=== PATIENT | female | born 1985 | race Caucasian/White ===

== ENCOUNTER 2017-10-24 08:47 | Emergency (ER) | payer MEDICAID, OTHER ==
[~2017-10-24] VITALS: Ht 170.2 cm; Wt 79.4 kg
[2017-10-24] MEDS ORDERED: LIDOCAINE 2% 20 ML (XYLOCAINE) VIAL ONE (11:21)
--- NOTE | 2017-10-24 11:57 | ED Integumentary General ---
General Chief Complaint: Skin/Wound Problems Stated Complaint: SPOT ON INNER RIGHT THIGH//PT HAS HS Nursing Triage Note: Pt reports abcess to R inner thigh near groin. Pt reports abcess has tripled in size since yesterday. Source: patient Exam Limitations: no limitations History of Present Illness Date Seen by Provider: Oct 24, 2017 Time Seen by Provider: 11:51 Initial Comments The patient is a 32-year-old white female. She lives in [facility] and is here with a construction project. 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 Her last was 3 months ago. She reports that she began to have pain earlier this week and that the lump has tripled in size since yesterday and is very tender. Timing/Duration: getting worse Allergies and Home Medications Patient Home Medication List Home Medication List Reviewed: Yes Constitutional: see HPI EENTM: no symptoms reported Respiratory: no symptoms reported Cardiovascular: no symptoms reported Gastrointestinal: no symptoms reported Genitourinary: no symptoms reported Musculoskeletal: no symptoms reported Skin: see HPI Endocrine: No Symptoms Reported Hematologic/Lymphatic: No Symptoms Reported Past Zmfisxv-Kanzhj-Dflick Hx Patient Social History Recent Foreign Travel: No Contact w/Someone Who Travel: No Recent Infectious Disease Expo: No Physical Exam Vital Signs Vital Signs - First Documented 10/24/17 09:05 Temp 95.6 Pulse 85 Resp 18 B/P (MAP) 109/64 (79) Pulse Ox 96 O2 Delivery Room Air Capillary Refill : Less Than 3 Seconds General Appearance: other (anxious and tearful) Neck: full range of motion Cardiovascular: normal peripheral pulses, regular rate, rhythm, no edema, no gallop, no JVD, no murmur Respiratory: chest non-tender, lungs clear, normal breath sounds, no respiratory distress, no accessory muscle use Comments There was a 5 cm global weighed fluctuant tender mass in the right groin just lateral to the labia. This was consistent with abscess. Procedures/Interventions I&D : Blade Size: 11 I & D Procedure: betadine prep, sterile drapes applied, gauze wick placed Packing/Drain: Idoform 1/2 Progress The patient was placed in a gown her underwear removed. She was placed on her back on the gurney. The labia were prepped with Hibiclens. She was then injected with 2-3 mL of 1 percent lidocaine. She tolerated this poorly. After a positive she was then incised with a number 11 scalpel. She began to have immediate drainage of a yellow white material. Culture was obtained. More creamy's was provoked by pressure. This too was tolerated poorly. The wound was then packed with 1/2 inch iodoform gauze. She had difficulty tolerating this as well. Progress/Results/Core Measures My Orders Orders - MEGAN ALTAMIRANO MD Lidocaine 2% Injection 20 Ml (Xylocaine (10/24/17 11:21) Vital Signs/I&O 10/24/17 09:05 Temp 95.6 Pulse 85 Resp 18 B/P (MAP) 109/64 (79) Pulse Ox 96 O2 Delivery Room Air Blood Pressure Mean: 79 Departure Impression Primary Impression: recurrent abscess right groin Disposition: 01 HOME, SELF-CARE Condition: Improved Departure-Patient Inst. Decision time for Depature: 11:59 Referrals: NO,LOCAL PHYSICIAN (PCP) Primary Care Physician Patient Instructions: Abscess Incision and Drainage (DC) Add. Discharge Instructions: All discharge instructions reviewed with patient and/or family. Voiced understanding. Keep the wound clean and dry as possible. The goal is to allow the wound drain for at least 2 days before beginning to remove the packing. After 2 days you can remove at half an inch of the gauze packing daily. In addition you have been prescribed doxycycline which you should take as well. Scripts Doxycycline Hyclate (Doxycycline Hyclate) 100 Mg Capsule 100 MG PO TWICE A DAY, #20 CAP Prov: MEGAN ALTAMIRANO MD 10/24/17 MEGAN ALTAMIRANO MD Oct 24, 2017 11:57
[2017-10-24] MEDS ORDERED: DOXY100C2 PO (12:02)
[2017-10-24 12:07] VITALS: BP 109/64
== END 2017-10-24 12:07 | disposition home or self-care (01) ==
LOC: ER 08:50
DX: L02.214 Cutaneous abscess of groin (principal)
CPT/HCPCS: 10060; 56405; 87070; 87205